=== PATIENT | male | born 1950 | race Caucasian/White ===

== ENCOUNTER 2019-07-06 17:37 | Inpatient (IN) | payer OTHER ==
[~2019-07-06] VITALS: Ht 180.3 cm; Wt 74.4 kg
[2019-07-06] MEDS: FAMOTIDINE/PF 20 MG/2 ML VIAL IV SCH (00:15)
[2019-07-06] MEDS ORDERED: GUAIFENESIN-DM 200/20 MG 10 ML PO PRN (19:00)
[2019-07-06] MEDS ORDERED: ONDANSETRON HCL 4 MG/2 ML VIAL IV PRN (19:00)
[2019-07-06] MEDS ORDERED: IPRATROPIUM 0.5 MG/2.5 ML INH IH PRN (19:15)
[2019-07-06] MEDS ORDERED: KETOROLAC TROMETHAMINE 30MG/ML IM PRN (19:15)
[2019-07-06] MEDS ORDERED: KETOROLAC TROMETHAMINE 30MG/ML ONE (19:18)
[2019-07-06 19:21] LABS: BILIRUBIN,URINE Negative (NEGATIVE); COLOR,URINE Yellow (YELLOW); GLUCOSE, URINE (UA) Negative (NEGATIVE); KETONES,URINE Negative (NEGATIVE); LEUKOCYTE ESTERASE ,URINE Negative (NEGATIVE); NITRATE,URINE Negative (NEGATIVE); OCCULT BLOOD,URINE Large (NEGATIVE); PROTEIN,URINE Trace mg/dL (NEGATIVE); UROBILINOGEN,URINE 0.2 mg/dL (0.2-1.0)
[2019-07-06 19:36] LABS: APPEARANCE,URINE CLEAR (CLEAR); BACTERIA,URINE Few /HPF (None Seen); SQUAMOUS EPITHELIAL CELL,UR 0-2 /HPF (0-2)
[2019-07-06 19:37] LABS: MUCUS,URINE Few LPF (None Seen)
[2019-07-06 19:40] LABS: BASOPHILS % (AUTO) 0.3 % (0.0-5.0); EOSINOPHILS % (AUTO) 1.3 % (0.0-8.0); HEMATOCRIT 36.4 % (42-54); LYMPHOCYTES % (AUTO) 13.3 % (21.0-51.0); MEAN CORPUSCULAR HEMOGLOBIN 33.6 pg (27.0-33.0); MEAN CORPUSCULAR HGB CONC 31.9 g/dL (32.0-36.0); MEAN CORPUSCULAR VOLUME 105.5 fL (79-99); MONOCYTES % (AUTO) 13.1 % (3.0-13.0); PLATELET COUNT (AUTO) 298 K/uL (130-400); RED BLOOD CELL COUNT(AUTO) 3.45 MIL/uL (4.50-6.20); RED CELL DISTRIBUTION WIDTH 17.2 % (11.0-15.5); WHITE BLOOD COUNT (AUTO) 7.2 K/uL (4.8-10.8)
[2019-07-06] MEDS ORDERED: MORPHINE SULFATE 2 MG/ML 1ML SYG ONE (19:55)
[2019-07-06] MEDS ORDERED: MORPHINE SULFATE 2 MG/ML 1ML SYG IVP SCH (20:00)
[2019-07-06 20:18] LABS: CREATININE 0.7 mg/dL (0.5-1.5); POTASSIUM 4.5 mmol/L (3.5-5.1)
[2019-07-06 20:20] LABS: INR 1.12 (0.85-1.15); PARTIAL THROMBOPLASTIN TIME 29.6 SEC (26.3-35.5); PROTHROMBIN TIME 11.7 SEC (9.6-11.6)
[2019-07-06 20:21] LABS: ALBUMIN 3.5 g/dL (3.5-5.0); BILIRUBIN,TOTAL 0.6 mg/dL (0.2-1.0); TOTAL PROTEIN, SERUM 7.6 g/dL (6.0-8.3)
[2019-07-06] MEDS ORDERED: FAMOTIDINE/PF 20 MG/2 ML VIAL IV ONE (21:59)
[2019-07-06 23:55] VITALS: BP 135/78
--- NOTE | 2019-07-07 00:40 | NUR ---
Paged Dr. Marie regarding new consult. Pending call back
--- NOTE | 2019-07-07 00:46 | NUR ---
Informed Dr. Marie regarding new consult. No new orders were given.
[2019-07-07] MEDS ORDERED: PERM60CR4 TP (01:57)
[2019-07-07] MEDS ORDERED: FOLI0.8T PO (01:57)
[2019-07-07] MEDS ORDERED: CYAN100T3 PO (01:57)
[2019-07-07] MEDS ORDERED: OLOD4MIS2 IH (01:57)
[2019-07-07] MEDS ORDERED: [UNRECOGNIZED DRUG - CODE] TP (01:57)
[2019-07-07] MEDS ORDERED: VITS42.53 TP (01:57)
[2019-07-07] MEDS ORDERED: DICL100G31 TP (01:57)
[2019-07-07] MEDS ORDERED: CLOB60SO TP (01:57)
[2019-07-07] MEDS ORDERED: GABA-533 PO (01:57)
[2019-07-07] MEDS ORDERED: HYDR-4064 PO (01:57)
[2019-07-07] MEDS ORDERED: ATOR40TA69 PO (01:57)
[2019-07-07] MEDS ORDERED: MOME0.13 IH (01:57)
[2019-07-07] MEDS ORDERED: [UNRECOGNIZED DRUG - CODE] TP (01:57)
[2019-07-07] MEDS ORDERED: FLUO30CR46 TP (01:57)
[2019-07-07 03:40] VITALS: BP 122/69
[2019-07-07] MEDS: KETOROLAC TROMETHAMINE 15MG/ML IV PRN (06:35)
[2019-07-07 06:52] LABS: BASOPHILS % (AUTO) 0.4 % (0.0-5.0); EOSINOPHILS % (AUTO) 2.5 % (0.0-8.0); HEMATOCRIT 35.1 % (42-54); LYMPHOCYTES % (AUTO) 18.7 % (21.0-51.0); MEAN CORPUSCULAR HEMOGLOBIN 32.4 pg (27.0-33.0); MEAN CORPUSCULAR HGB CONC 30.2 g/dL (32.0-36.0); MEAN CORPUSCULAR VOLUME 107.3 fL (79-99); MONOCYTES % (AUTO) 17.9 % (3.0-13.0); NEUTROPHILS % (AUTO) 59.8 % (40.0-77.0); PLATELET COUNT (AUTO) 282 K/uL (130-400); RED BLOOD CELL COUNT(AUTO) 3.27 MIL/uL (4.50-6.20); RED CELL DISTRIBUTION WIDTH 17.4 % (11.0-15.5); WHITE BLOOD COUNT (AUTO) 5.6 K/uL (4.8-10.8)
[2019-07-07 07:22] LABS: ALBUMIN 3.1 g/dL (3.5-5.0); BILIRUBIN,TOTAL 0.5 mg/dL (0.2-1.0); CREATININE 0.7 mg/dL (0.5-1.5); POTASSIUM 4.2 mmol/L (3.5-5.1); TOTAL PROTEIN, SERUM 6.7 g/dL (6.0-8.3)
[2019-07-07 08:00] VITALS: BP 135/80
[2019-07-07] MEDS: NICOTINE 21 MG/ 24 HR PATCH TD SCH (08:34)
[2019-07-07] MEDS: FAMOTIDINE/PF 20 MG/2 ML VIAL IV SCH ×2 (08:34→19:45)
[2019-07-07] MEDS ORDERED: HYDROCODONE/ACETAMINOPHEN 7.5/325 MG TAB PO PRN (10:00)
[2019-07-07] MEDS: MORPHINE SULFATE 2 MG/ML 1ML SYG IVP PRN ×3 (10:24→22:54)
--- NOTE | 2019-07-07 10:41 | NUR ---
DR. RYDER OFFICE WAS CALLED FOR CONSULT. SPOKE WITH VP [employer].
--- NOTE | 2019-07-07 10:49 | NUR ---
INITIAL SW spoke with patient. He states he lives with spouse, Maritza Maxwell, . No home services. DME: nebulizer, shower chair, O2 concentrator/portable thru [facility] DME arranged by [facility]. Patient reports he needs help with getting dressed but is able to drive. PCP is Dr. Nahum Rodgers at [facility]. Pharmacy is [facility]. DCP is home. MILLY contacted Anne Tobias, [facility] [employer] Worker to verify if patient was Service Connected. Bethany Jatinder stated she would call MLILY back with information. Addendum: 07/07/19 at 1052 by TERI FREIRE Amended: Links added.
[2019-07-07 11:54] VITALS: BP 126/73
--- NOTE | 2019-07-07 12:10 | NUR ---
DR. CURRAN'S DATA MODELING ARCHITECT CAME BY TO SEE PATIENT BUT PATIENT SEES DR. GUSTAFSON. CARDIOLOGY CONSULT CHANGED TO DR. GUSTAFSON. DR. GUSTAFSON CALLED AND INFORMED OF CONSULT. NO ORDERS GIVEN
[2019-07-07 16:00] VITALS: BP 128/83
--- NOTE | 2019-07-07 17:10 | NUR ---
CALLED PAGER FOR DR. MENEZES IN REGARDS TO PATIENT. MESSAGE LEFT. AWAITING RETURN CALL
--- NOTE | 2019-07-07 17:13 | NUR ---
CALLED OR SCHEDULING TO SEE IF PATIENT WAS ON DR. MENEZES'S LIST FOR TOMORROW. QUE IS NOT ON SCHEDULE. WILL PAGE DR. MENEZES.
[2019-07-07 19:30] VITALS: BP 141/98
[2019-07-07] MEDS: GABAPENTIN 100 MG CAPSULE PO SCH (19:45)
[2019-07-08] VITALS (30 sets, daily range): BP systolic 105–169; BP diastolic 65–102
[2019-07-08] MEDS: IPRATROPIUM/ALBUTEROL SULFATE 3 ML SOLUTION IH SCH ×5 (00:40→23:30)
[2019-07-08] MEDS: MORPHINE SULFATE 2 MG/ML 1ML SYG IVP PRN ×2 (04:36→22:33)
[2019-07-08 05:18] LABS: BASOPHILS % (AUTO) 0.5 % (0.0-5.0); EOSINOPHILS % (AUTO) 2.6 % (0.0-8.0); HEMATOCRIT 35.9 % (42-54); LYMPHOCYTES % (AUTO) 20.5 % (21.0-51.0); MEAN CORPUSCULAR HEMOGLOBIN 33.6 pg (27.0-33.0); MEAN CORPUSCULAR HGB CONC 31.8 g/dL (32.0-36.0); MEAN CORPUSCULAR VOLUME 105.9 fL (79-99); MONOCYTES % (AUTO) 17.7 % (3.0-13.0); NEUTROPHILS % (AUTO) 57.8 % (40.0-77.0); PLATELET COUNT (AUTO) 314 K/uL (130-400); RED BLOOD CELL COUNT(AUTO) 3.39 MIL/uL (4.50-6.20); RED CELL DISTRIBUTION WIDTH 16.8 % (11.0-15.5); WHITE BLOOD COUNT (AUTO) 5.9 K/uL (4.8-10.8)
[2019-07-08 05:31] LABS: ALBUMIN 3.1 g/dL (3.5-5.0); BILIRUBIN,TOTAL 0.4 mg/dL (0.2-1.0); CREATININE 0.7 mg/dL (0.5-1.5); POTASSIUM 4.1 mmol/L (3.5-5.1)
[2019-07-08] MEDS: NICOTINE 21 MG/ 24 HR PATCH TD SCH (08:22)
[2019-07-08] MEDS: KETOROLAC TROMETHAMINE 15MG/ML IV PRN (08:23)
[2019-07-08] MEDS: FAMOTIDINE/PF 20 MG/2 ML VIAL IV SCH ×2 (09:00→21:00)
[2019-07-08] MEDS ORDERED: MIDAZOLAM HCL 1 MG/ML 2ML VIAL ONE (13:58)
[2019-07-08] MEDS ORDERED: FENTANYL CITRATE PF 50 MCG/1 ML 2ML VIAL ONE (13:59)
[2019-07-08] MEDS ORDERED: LIDOCAINE PF 2% 5ML ABBOJECT ONE (14:02)
[2019-07-08] MEDS ORDERED: ROCURONIUM 10MG/1ML SYR 10 MG/ML ML ONE (14:03)
[2019-07-08] MEDS ORDERED: PROPOFOL 10 MG/ML 20ML VIAL IV ONE ×2 (14:03→15:38)
[2019-07-08] MEDS ORDERED: EPHEDRINE SULFATE 50 MG/ML AMPULE ONE (14:23)
[2019-07-08] MEDS ORDERED: PHENYLEPHRINE HCL 10 MG/ML 1ML VIAL IV ONE (14:25)
[2019-07-08] MEDS ORDERED: CLINDAMYCIN 600 MG/D5% WATER 50 ML IV ONE (14:34)
[2019-07-08] MEDS ORDERED: NEOSTIGMINE 5MG/5ML SYR IV ONE (15:07)
[2019-07-08] MEDS ORDERED: GLYCOPYRROLATE 1 MG/5 ML SYRINGE ONE (15:07)
[2019-07-08] MEDS ORDERED: ONDANSETRON HCL 4 MG/2 ML VIAL ONE (15:08)
[2019-07-08] MEDS ORDERED: SUGAMMADEX SODIUM 200 MG/2 ML VIAL IV ONE (15:30)
[2019-07-08] MEDS ORDERED: DiphenhydrAMINE HCL 50 MG/ML VIAL IVP PRN (15:30)
[2019-07-08] MEDS ORDERED: POTASSIUM CHLORIDE 20MEQ/100ML 100 ML IV PRN (15:30)
[2019-07-08] MEDS ORDERED: DIPHENHYDRAMINE HCL 25 MG CAPSULE PO PRN (15:30)
[2019-07-08] MEDS ORDERED: FERROUS FUMARATE 324 MG TABLET PO PRN (15:30)
[2019-07-08] MEDS ORDERED: SUCCINYLCHOLINE 200MG/10ML SYR ONE (15:41)
[2019-07-08] MEDS: SODIUM CHLORIDE 0.9% 1000ML 1,000 ML IV SCH (16:19)
[2019-07-08 16:26] LABS: ABG BASE EXCESS 5.2 mmol/L (-2.0-3.0); ABG HCO3 34.2 mmol/L (21.0-28.0); ABG OXYGEN SATURATION 99.1 % (95.0-99.0); ABG PCO2 71 mmHg (35-48)
[2019-07-08 16:54] LABS: ABG BASE EXCESS 3.2 mmol/L (-2.0-3.0); ABG HCO3 27.8 mmol/L (21.0-28.0); ABG OXYGEN SATURATION 95.9 % (95.0-99.0); ABG PCO2 43 mmHg (35-48)
[2019-07-08] MEDS: GABAPENTIN 100 MG CAPSULE PO SCH (21:59)
[2019-07-08] MEDS: TRAMADOL HCL 50 MG TABLET PO PRN (22:52)
[2019-07-09] VITALS (13 sets, daily range): BP systolic 124–183; BP diastolic 69–106
--- NOTE | 2019-07-09 00:30 | NUR ---
Dr. Pickens at bedside. Let him know that patient was experiencing some pain and medication ordered was insufficient. Dr ordered one time dose for pain at this time. Will continue to monitor.
[2019-07-09] MEDS ORDERED: FENTANYL CITRATE PF 50 MCG/1 ML 2ML VIAL IVP ONE (00:45)
[2019-07-09] MEDS ORDERED: FENTANYL CITRATE PF 50 MCG/1 ML 5ML AMP IV ONE (00:48)
[2019-07-09 03:51] LABS: BASOPHILS % (AUTO) 0.3 % (0.0-5.0); EOSINOPHILS % (AUTO) 0.3 % (0.0-8.0); HEMATOCRIT 35.3 % (42-54); LYMPHOCYTES % (AUTO) 8.2 % (21.0-51.0); MEAN CORPUSCULAR HEMOGLOBIN 33.3 pg (27.0-33.0); MEAN CORPUSCULAR HGB CONC 31.4 g/dL (32.0-36.0); MONOCYTES % (AUTO) 17.6 % (3.0-13.0); PLATELET COUNT (AUTO) 293 K/uL (130-400); RED BLOOD CELL COUNT(AUTO) 3.33 MIL/uL (4.50-6.20); RED CELL DISTRIBUTION WIDTH 16.8 % (11.0-15.5); WHITE BLOOD COUNT (AUTO) 8.7 K/uL (4.8-10.8)
[2019-07-09] MEDS: MORPHINE SULFATE 2 MG/ML 1ML SYG IVP PRN (03:53)
[2019-07-09] MEDS: SODIUM CHLORIDE 0.9% 1000ML 1,000 ML IV SCH ×2 (03:53→11:16)
[2019-07-09 04:05] LABS: ALBUMIN 3.2 g/dL (3.5-5.0); BILIRUBIN,TOTAL 0.6 mg/dL (0.2-1.0); CREATININE 0.7 mg/dL (0.5-1.5); TOTAL PROTEIN, SERUM 7.1 g/dL (6.0-8.3)
[2019-07-09] MEDS: IPRATROPIUM/ALBUTEROL SULFATE 3 ML SOLUTION IH SCH ×2 (06:09→11:45)
[2019-07-09] MEDS: TRAMADOL HCL 50 MG TABLET PO PRN (08:23)
[2019-07-09] MEDS: FAMOTIDINE/PF 20 MG/2 ML VIAL IV SCH (08:24)
[2019-07-09] MEDS: OXYCODONE HCL 5 MG TAB PO PRN ×2 (08:33→13:18)
[2019-07-09] MEDS ORDERED: POLYETHYLENE GLYCOL 3350 17 GM POWD.PACK PO SCH (09:00)
[2019-07-09] MEDS ORDERED: PSYLLIUM SEED 1 EACH PACKET PO SCH (12:00)
[2019-07-09] MEDS: NICOTINE 21 MG/ 24 HR PATCH TD SCH (13:14)
[2019-07-10] MEDS ORDERED: BISACODYL 5 MG TABLET.DR PO PRN (15:30)
[2019-07-11] MEDS ORDERED: BISACODYL 10 MG SUPP.RECT RC PRN (15:30)
== END 2019-07-09 15:30 | disposition home or self-care (01) | DRG 517 ==
LOC: EDH 17:37 → EDHIP 19:40 → 4DH 22:22 → 2BH 07-08 19:30
PROVIDERS: ADMIT Internal Medicine; ATTEND Internal Medicine
PROC: 0PSB04Z Reposition Left Clavicle with Internal Fixation Device, Open Approach (ICD-10-PCS; principal; 2019-07-08 14:01)
PROC: 5A09357 Assistance with Respiratory Ventilation, Less than 24 Consecutive Hours, Continuous Positive Airway Pressure (ICD-10-PCS; 2019-07-08 14:01)
DX: S42.032A Displaced fracture of lateral end of left clavicle, initial encounter for closed fracture (principal); J43.9 Emphysema, unspecified; I25.10 Atherosclerotic heart disease of native coronary artery without angina pectoris; R09.02 Hypoxemia; G62.9 Polyneuropathy, unspecified; F17.210 Nicotine dependence, cigarettes, uncomplicated; L40.9 Psoriasis, unspecified; W01.0XXA Fall on same level from slipping, tripping and stumbling without subsequent striking against object, initial encounter; Y93.K1 Activity, walking an animal; Y92.89 Other specified places as the place of occurrence of the external cause; Y99.8 Other external cause status; Z79.51 Long term (current) use of inhaled steroids; Z85.118 Personal history of other malignant neoplasm of bronchus and lung; Z85.46 Personal history of malignant neoplasm of prostate; Z87.442 Personal history of urinary calculi; Z90.2 Acquired absence of lung [part of]; Z92.3 Personal history of irradiation; Z95.5 Presence of coronary angioplasty implant and graft; Z99.81 Dependence on supplemental oxygen; Z88.0 Allergy status to penicillin; Z88.7 Allergy status to serum and vaccine; Z88.8 Allergy status to other drugs, medicaments and biological substances
CPT/HCPCS: 36415; 36600; 71045; 73000; 73030; 80053; 81001; 82435; 82803; 82947; 83605; 84132; 84295; 85018; 85025; 85610; 85730; 93005; 94640; 94660; 94664; G0378; J0330; J1885; J2001; J2250; J2370; J2405; J2704; J2710; J3010; J3490; J7030